=== PATIENT | female | born 1970 | race Caucasian/White ===

== ENCOUNTER 2022-12-09 18:29 | Observation (INO) | payer BC ==
[2022-12-09 19:18] LABS: #Basophils 0.1 10x3/uL (0.0-0.2); #Monocytes 0.3 10x3/uL (0.0-1.1); #Neutrophils 2.3 10x3/uL (1.5-8.4); %Basophils 1.4 % (0.0-2.0); %Eosinophils 0.7 % (0.0-6.0); %Lymphocytes 34.9 % (18.0-47.0); %Monocytes 7.9 % (0.0-10.0); %Neutrophils 55.1 % (40.0-75.0); Hemoglobin 13.4 g/dL (12.0-15.5); Mean Corpuscular Hemoglobin 30.4 pg (27.0-33.0); Mean Corpuscular Volume 92.1 fl (81.6-98.3); Mean Platelet Volume 9.8 fl (7.4-10.4); Platelet Count 315 10x3/uL (150-450); Red Blood Cell (RBC) Count 4.41 10x6/uL (3.90-5.03); White Blood Cell (WBC) Count 4.2 10x3/uL (3.5-10.5)
[2022-12-09 19:31] LABS: ALT (SGPT) 48 U/L (8-55); AST (SGOT) 59 U/L (5-34); Albumin 4.9 g/dL (3.5-5.0); Alkaline Phosphatase 61 U/L (40-110); Anion Gap 16 mmol/L (10-20); BUN (Urea Nitrogen) 12 mg/dL (9.8-20.1); Bilirubin, Total 0.6 mg/dL (0.2-1.2); Calc. Creatinine Clearance 0 mL/min (70-130); Calcium 10.1 mg/dL (7.8-10.44); Carbon Dioxide 25 mmol/L (22-29); Chloride 98 mmol/L (98-107); Estimated GFR 84; Globulin 2.8 g/dL (2.4-3.5); Glucose 100 mg/dL (70-105); Lipase 21 U/L (8-78); Potassium 4.3 mmol/L (3.5-5.1); Protein, Total 7.7 g/dL (6.0-8.3); Sodium 135 mmol/L (136-145)
[2022-12-09] MEDS ORDERED: Nitroglycerin 2% Ointment 1 INCH/1 GM Packet ONE (20:20)
[2022-12-09] MEDS ORDERED: Aspirin Chewable 81 MG TAB ONE (21:24)
[2022-12-09] MEDS ORDERED: Nitroglycerin 0.4 MG TAB (25 Tab Bottle) SL PRN (23:56)
[2022-12-10] MEDS: Nitroglycerin 2% Ointment 1 INCH/1 GM Packet TOP SCH ×2 (00:16→08:34)
[2022-12-10] MEDS ORDERED: NS 0.9% w/ 20 MEQ KCL 1,000 ML ONE (00:21)
[2022-12-10 00:47] LABS: Magnesium 2.1 mg/dL (1.6-2.6)
[2022-12-10 00:54] LABS: Troponin I Less than 0.010 ng/mL (< 0.028)
[2022-12-10] MEDS ORDERED: NS 0.9% w/ 20 MEQ KCL 1,000 ML/1,000 ML BAG IV SCH (01:00)
[2022-12-10 03:11] LABS: #Basophils 0.1 10x3/uL (0.0-0.2); #Eosinphils 0.1 10x3/uL (0.0-0.5); #Monocytes 0.4 10x3/uL (0.0-1.1); %Basophils 1.6 % (0.0-2.0); %Eosinophils 1.2 % (0.0-6.0); %Lymphocytes 41.8 % (18.0-47.0); %Monocytes 9.2 % (0.0-10.0); Hemoglobin 12.9 g/dL (12.0-15.5); Mean Corpuscular HGB CONC 33.4 g/dL (32.0-36.0); Mean Corpuscular Volume 92.8 fl (81.6-98.3); Mean Platelet Volume 9.4 fl (7.4-10.4); Platelet Count 274 10x3/uL (150-450); RBC Distribution Width 12.2 % (11.5-14.5); Red Blood Cell (RBC) Count 4.16 10x6/uL (3.90-5.03); White Blood Cell (WBC) Count 4.3 10x3/uL (3.5-10.5)
[2022-12-10 03:25] LABS: Anion Gap 13 mmol/L (10-20); BUN (Urea Nitrogen) 11 mg/dL (9.8-20.1); Calc. Creatinine Clearance 96 mL/min (70-130); Carbon Dioxide 31 mmol/L (22-29); Chloride 102 mmol/L (98-107); Estimated GFR 86; Glucose 90 mg/dL (70-105); Potassium 4.5 mmol/L (3.5-5.1); Sodium 141 mmol/L (136-145)
[2022-12-10 03:32] LABS: Troponin I Less than 0.010 ng/mL (< 0.028)
[2022-12-10] MEDS ORDERED: Aspirin Chewable 81 MG TAB ONE (08:32)
[2022-12-10] MEDS ORDERED: Nitroglycerin 2% Ointment 1 INCH/1 GM Packet ONE (08:32)
[2022-12-10] MEDS ORDERED: Communication Order-Pharmacy FS SCH (08:45)
[2022-12-10] MEDS ORDERED: Aspirin Chewable 81 MG TAB PO SCH (09:00)
[2022-12-10] MEDS ORDERED: Iopamidol 300 61% 100 ML VIAL FS ONE (09:47)
[2022-12-10] MEDS ORDERED: Lidocaine 1% MPF 2 ML VIAL ONE (09:57)
[2022-12-10] MEDS ORDERED: Nitroglycerin 50 MG/250 ML BOT 250 ML ONE (09:58)
[2022-12-10] MEDS ORDERED: Verapamil 5 MG/2 ML VIAL ONE (09:58)
[2022-12-10] MEDS ORDERED: Heparin 10,000 UNITS/ 10 ML VIAL ONE (09:58)
[2022-12-10] MEDS ORDERED: Lidocaine 1% (PF) 30 ML VIAL ONE (09:58)
[2022-12-10] MEDS ORDERED: Adenosine 6 MG/2 ML VIAL ONE (09:59)
[2022-12-10] MEDS ORDERED: Bivalirudin 250 MG VIAL ONE (09:59)
[2022-12-10] MEDS ORDERED: Sodium Chloride 0.9% 1,000 ML ONE (10:00)
[2022-12-10] MEDS ORDERED: Fentanyl 100 MCG/2 ML VIAL ONE (10:21)
[2022-12-10] MEDS ORDERED: Midazolam HCl 2 mg/2 ml Vial ONE ×2 (10:22→10:58)
[2022-12-10] MEDS ORDERED: Acetaminophen 325 MG TAB PO PRN (11:10)
[2022-12-10] MEDS ORDERED: Nitroglycerin 0.4 MG TAB (25 Tab Bottle) SL PRN (11:10)
== END 2022-12-10 16:00 | disposition home or self-care (01) ==
LOC: CSHERS 18:29 → CSHERHOLD 22:15 → INTOOBSV 22:15 → CSHIMCU 12-10 11:27
PROVIDERS: ADMIT Family Medicine; ATTEND Family Medicine
DX: R07.9 Chest pain, unspecified (principal); R06.02 Shortness of breath; E78.5 Hyperlipidemia, unspecified; I10 Essential (primary) hypertension; K21.9 Gastro-esophageal reflux disease without esophagitis; M06.9 Rheumatoid arthritis, unspecified; E03.9 Hypothyroidism, unspecified; F32.A Depression, unspecified; F43.10 Post-traumatic stress disorder, unspecified; Z82.49 Family history of ischemic heart disease and other diseases of the circulatory system; Z90.89 Acquired absence of other organs; M35.00 Sjogren syndrome, unspecified; Z85.3 Personal history of malignant neoplasm of breast; Z98.84 Bariatric surgery status; Z79.82 Long term (current) use of aspirin; Z79.899 Other long term (current) drug therapy
CPT/HCPCS: 36415; 71045; 80048; 80053; 83690; 83735; 84484; 85025; 93005; 93010; 93458; 96372; 99152; C1769; C1894; G0378; J0153; J0583; J1644; J1650; J2001; J2250; J3010; J3480; J7050; Q9967